=== PATIENT | female | born 1985 | race American Indian/Alaskan Native ===

== ENCOUNTER 2018-04-03 10:06 | Emergency (ER) | payer SELFPAY ==
[2018-04-03 10:18] VITALS: BP 111/71
--- NOTE | 2018-04-03 12:13 | Emergency Department Report ---
ED ENT HPI - General Chief complaint: Earache Stated complaint: EAR INFECTION Time Seen by Provider: 04/03/18 11:56 Source: patient Mode of arrival: Ambulatory Limitations: No Limitations - History of Present Illness Initial comments: 32-year-old female with left ear pain 2 days. Denies fever, toothache. Patient reports went swimming in a swimming pool approximately one week ago. complaint: ear pain -: Gradual, days(s) (2) Location: L ear Severity: moderate Quality: aching Consistency: constant Improves with: none Worsens with: none Context- Ear: recent swimming Associated Symptoms: denies: fever, toothache, sore throat - Related Data Previous Rx's Medication Instructions Recorded Last Taken Type Naproxen [Naprosyn] 500 mg PO BID PRN #20 tablet 04/03/18 Unknown Rx Neomy/Polymyx B/Hc (Otic) Soln 4 drops OTIC TID 7 Days bottle 04/03/18 Unknown Rx [Cortisporin (Otic) Soln] ED Dental HPI - General Chief complaint: Earache Stated complaint: EAR INFECTION Time Seen by Provider: 04/03/18 11:56 Source: patient Mode of arrival: Ambulatory Limitations: No Limitations - Related Data Previous Rx's Medication Instructions Recorded Last Taken Type Naproxen [Naprosyn] 500 mg PO BID PRN #20 tablet 04/03/18 Unknown Rx Neomy/Polymyx B/Hc (Otic) Soln 4 drops OTIC TID 7 Days bottle 04/03/18 Unknown Rx [Cortisporin (Otic) Soln] ED Review of Systems ROS: Stated complaint: EAR INFECTION Other details as noted in HPI Comment: All other systems reviewed and negative Constitutional: denies: fever ENT: ear pain. denies: throat pain, dental pain, hearing loss Respiratory: denies: cough Gastrointestinal: denies: nausea, vomiting ED Past Medical Hx - Social History Smoking Status: Current Some Day Smoker Substance Use Type: None - Medications Home Medications: Home Medications Medication Instructions Recorded Confirmed Last Taken Type Naproxen [Naprosyn] 500 mg PO BID PRN #20 tablet 04/03/18 Unknown Rx Neomy/Polymyx B/Hc (Otic) Soln 4 drops OTIC TID 7 Days bottle 04/03/18 Unknown Rx [Cortisporin (Otic) Soln] ED Physical Exam - General Limitations: No Limitations General appearance: alert, other (appears uncomfortable) - Head Head exam: Present: atraumatic, normocephalic - Eye Eye exam: Present: normal appearance, EOMI - ENT ENT exam: Present: other (left ear canal w/ erythema and discharge present; pain with manipulation of left pinna) - Neck Neck exam: Present: normal inspection, full ROM. Absent: tenderness, meningismus, lymphadenopathy - Respiratory Respiratory exam: Present: normal lung sounds bilaterally. Absent: respiratory distress - Cardiovascular Cardiovascular Exam: Present: regular rate, normal rhythm - Extremities Exam Extremities exam: Present: normal inspection - Neurological Exam Neurological exam: Present: alert, oriented X3 - Psychiatric Psychiatric exam: Present: normal affect, normal mood - Skin Skin exam: Present: warm, dry, intact, normal color. Absent: rash ED Course Vital Signs 04/03/18 10:14 Temperature 98.8 F Pulse Rate 99 H Respiratory 18 Rate Blood Pressure 111/71 O2 Sat by Pulse 9 L Oximetry ED Medical Decision Making - Medical Decision Making 32-year-old female with left otitis externa likely due to recent pool visit. Will give prescription for anti-inflammatory antibiotics. Critical care attestation.: If time is entered above; I have spent that time in minutes in the direct care of this critically ill patient, excluding procedure time. ED Disposition Clinical Impression: Otitis externa of left ear Disposition: DC-01 TO HOME OR SELFCARE Is pt being admited?: No Condition: Stable Instructions: Otitis Externa (ED) Prescriptions: Naproxen [Naprosyn] 500 mg PO BID PRN #20 tablet PRN Reason: pain Neomy/Polymyx B/Hc (Otic) Soln [Cortisporin (Otic) Soln] 4 drops OTIC TID 7 Days bottle Referrals: [facility] [Provider Group] - 3-5 Days [facility] [Outside] - 3-5 Days Time of Disposition: 12:17
[2018-04-03] MEDS ORDERED: MOTRIN PO ONE (12:19)
== END 2018-04-03 12:27 | disposition home or self-care (01) ==
LOC: ED 10:06
DX: H60.92 Unspecified otitis externa, left ear (principal); F17.200 Nicotine dependence, unspecified, uncomplicated
CPT/HCPCS: 99282

== ENCOUNTER 2018-08-04 18:39 | Emergency (ER) | payer SELFPAY ==
[2018-08-04] MEDS ORDERED: TYLENOL PO ONE (19:40)
[2018-08-04] MEDS ORDERED: TYLENOL ONE (19:44)
[2018-08-04 20:04] VITALS: BP 122/71
== END 2018-08-04 20:45 | disposition left against medical advice (07) ==
LOC: ED 18:39
DX: H57.10 Ocular pain, unspecified eye (principal); Z53.21 Procedure and treatment not carried out due to patient leaving prior to being seen by health care provider

== ENCOUNTER 2019-04-16 16:36 | Emergency (ER) | payer SELFPAY ==
--- NOTE | 2019-04-16 17:52 | Event Note ---
ED Screening Note Date of service: 04/16/19 Time: 17:47 ED Screening Note: This is a 33 y.o. F. that presents to the ER with right thigh numbness upon awakening. Patient states she went out drinking last night and woke up with numbness to right thigh. States this happened 2 times before but she never followed up with anyone. Denies injury, swelling, redness. Current smoker - pain This initial assessment/diagnostic orders/clinical plan/treatment(s) is/are subject to change based on patients health status, clinical progression and re- assessment by fellow clinical providers in the ED. Further treatment and workup at subsequent clinical providers discretion. Patient/guardian urged not to elope from the ED as their condition may be serious if not clinically assessed and managed. Initial orders include:
[2019-04-16 19:31] VITALS: BP 105/62
--- NOTE | 2019-04-16 20:48 | Emergency Department Report ---
HPI - General Chief Complaint: Neuro Symptoms/Deficit Time Seen by Provider: 04/16/19 17:47 - HPI HPI: Room 23 The patient is a 33-year-old female presenting with a chief complaint of right thigh numbness. The patient states she awakened this morning at approximately 11:00 with numbness to the anterior lateral aspect of her right thigh. The patient states she will sleep at 07:00 this morning and the numbness was not present. Patient denies any preceding injury. Patient denies numbness elsewhere. Patient denies dysarthria or weakness. The patient states this is the fourth episode she has had numbness on the same area of her right thigh. Fi rst episode occurred plus to 4 months ago that she had a second episode that occurred approximately one month ago. The patient states she has never been evaluated for these symptoms. Patient denies family history of multiple sclerosis Location: [See above] Duration: [See above] Quality: [See above] Severity: [See above] Timing: [See above] Context: [See above] Modifying factors: [See above] Associated signs and symptoms: [see above] ED Past Medical Hx - Past Medical History Previous Medical History?: No - Surgical History Past Surgical History?: No - Family History Family history: no significant - Social History Smoking Status: Current Every Day Smoker (1/4 pack per day) Substance Use Type: None (denies illicit drug use), Alcohol (occasional) - Medications Home Medications: Home Medications Medication Instructions Recorded Confirmed Last Taken Type Naproxen [Naprosyn] 500 mg PO BID PRN #20 tablet 04/03/18 Unknown Rx Neomy/Polymyx B/Hc (Otic) Soln 4 drops OTIC TID 7 Days bottle 04/03/18 Unknown Rx [Cortisporin (Otic) Soln] ED Review of Systems ROS: Stated complaint: RT THIGH NUMB Other details as noted in HPI Constitutional: no symptoms reported Eyes: denies: eye pain ENT: denies: throat pain Respiratory: no symptoms reported Cardiovascular: denies: chest pain Endocrine: no symptoms reported Gastrointestinal: denies: abdominal pain Genitourinary: denies: dysuria Musculoskeletal: denies: back pain Neurological: numbness. denies: headache, weakness Physical Exam - Physical Exam Vital Signs: Vital Signs 04/16/19 04/16/19 17:48 19:28 Temperature 98.3 F 98.7 F Pulse Rate 66 64 Respiratory 18 20 Rate Blood Pressure 97/59 [Left] Blood Pressure 116/79 105/62 [Right] O2 Sat by Pulse 95 95 Oximetry Physical Exam: GENERAL: The patient is well-developed well-nourished female lying on stretcher not appearing to be in acute distress. [] HEENT: Normocephalic. Atraumatic. Extraocular motions are intact. Patient has moist mucous membranes. NECK: Supple. Trachea midline CHEST/LUNGS: Clear to auscultation. There is no respiratory distress noted. HEART/CARDIOVASCULAR: Regular. There is no tachycardia. There is no gallop rub or murmur. 2+ right DP ABDOMEN: Abdomen is soft, nontender. Patient has normal bowel sounds. There is no abdominal distention. SKIN: There is no rash. There is no edema. There is no diaphoresis. NEURO: The patient is awake, alert, and oriented. The patient is cooperative. The patient has no focal neurologic deficits. The patient has normal speech. Cranial nerves II through XII grossly intact, no drift. Mild numbness to light touch of the anterolateral aspect of the right thigh. There is no numbness to light touch of the first interdigital webspace of the right foot. MUSCULOSKELETAL: There is no evidence of acute injury. Body Four View: 1 - Region of numbness ED Course Vital Signs 04/16/19 04/16/19 17:48 19:28 Temperature 98.3 F 98.7 F Pulse Rate 66 64 Respiratory 18 20 Rate Blood Pressure 97/59 [Left] Blood Pressure 116/79 105/62 [Right] O2 Sat by Pulse 95 95 Oximetry - Reevaluation(s) Reevaluation #1: 04/16/19 21:[address] without before labs could be drawn ED Medical Decision Making - Radiology Data Radiology results: report reviewed (CT head), image reviewed (CT head) [facility] [address] [place] [address] Cat Scan Report Signed Patient: TR HANSEN MR#: [id number] : 1985 Acct:[id number] Age/Sex: 33 / F ADM Date: 04/16/19 Loc: ED Attending Dr: Ordering Physician: JOSETTE HOOD MD Date of Service: 04/16/19 Procedure(s): CT head/brain wo con Accession Number(s): [id number] cc: JOSETTE HOOD MD CT HEAD WITHOUT CONTRAST INDICATION : Headache. Right thigh numbness. TECHNIQUE: Axial, coronal and sagittal CT imaging was performed from the skull apex through the skull base without contrast. All CT scans at this location are performed using CT dose reduction for ALARA by means of automated exposure control. COMPARISON: None available. FINDINGS: PARENCHYMA: No mass, midline shift, hemorrhage, extraaxial collection or acute territorial infarction. VENTRICLES: Symmetric and normal in size. SOFT TISSUES: Soft tissues including the orbits appear normal. BONES: No acute osseous abnormality. SINUSES: No significant abnormality. ADDITIONAL FINDINGS: None. IMPRESSION: No acute intracranial abnormality. Signer Name: Anshu Reyez MD Signed: 04/16/2019 9:16 PM Workstation Name: [id number] Transcribed By: MN Dictated By: Anshu Reyez MD Electronically Authenticated By: Anshu Reyez MD Signed Date/Time: 04/16/192115 DD/ 14 TD/TT: - Differential Diagnosis neuropathy, multiple sclerosis, rhabdomyolysis Critical care attestation.: If time is entered above; I have spent that time in minutes in the direct care of this critically ill patient, excluding procedure time. ED Disposition Clinical Impression: Numbness of right anterior thigh Disposition: Z-07 ELOPED Is pt being admited?: No Does the pt Need Aspirin: No Condition: Undetermined Referrals: PRIMARY CARE, [Primary Care Provider] - 3-5 Days Time of Disposition: 21:32 (patient eloped)
--- NOTE | 2019-04-16 21:20 | Cat Scan Report ---
CT HEAD WITHOUT CONTRAST INDICATION : Headache. Right thigh numbness. TECHNIQUE: Axial, coronal and sagittal CT imaging was performed from the skull apex through the skul l base without contrast. All CT scans at this location are performed using CT dose reduction for ALA RA by means of automated exposure control. COMPARISON: None available. FINDINGS: PARENCHYMA: No mass, midline shift, hemorrhage, extraaxial collection or acute territorial infarctio n. VENTRICLES: Symmetric and normal in size. SOFT TISSUES: Soft tissues including the orbits appear normal. BONES: No acute osseous abnormality. SINUSES: No significant abnormality. ADDITIONAL FINDINGS: None. IMPRESSION: No acute intracranial abnormality. Signer Name: Anshu Reyez MD Signed: 04/16/2019 9:16 PM Workstation Name: [id number]
== END 2019-04-16 20:43 | disposition left against medical advice (07) ==
LOC: ED 16:36
DX: R20.0 Anesthesia of skin (principal); F17.200 Nicotine dependence, unspecified, uncomplicated
CPT/HCPCS: 70450